=== PATIENT | female | born 1975 | race African-American/Black ===

== ENCOUNTER 2016-03-20 17:24 | Emergency (ER) | payer OTHER ==
[2016-03-20 19:49] LABS: PH,URINE 6.5 (5.0-8.0); URINE BILIRUBIN NEGATIVE (NEGATIVE); URINE BLOOD NEGATIVE (NEGATIVE); URINE GLUCOSE (UA) NEGATIVE (NEGATIVE); URINE LEUKOCYTE ESTERASE NEGATIVE (NEGATIVE); URINE NITRITE NEGATIVE (NEGATIVE); URINE PROTEIN NEGATIVE (NEGATIVE); URINE UROBILINOGEN NORMAL (0-1 mg/dl)
[2016-03-20 19:51] LABS: HCG,QUALITATIVE URINE POSITIVE
[2016-03-20 19:53] LABS: URINE APPEARANCE CLEAR; URINE COLOR YELLOW
[2016-03-20 20:07] LABS: ABSOLUTE NEUTROPHIL COUNT 3.6 K/mm3 (1.8-7.7); BASO % 0.1 % (0.2-1.0); EOS # 0.1 (0.0-0.5); EOS % 1.2 % (0.9-2.9); HEMATOCRIT 38.1 % (37.0-47.0); IMM NEUT% 0.1 % (0-1); LYMPH # 2.8 (1.0-4.8); LYMPH % 40.6 % (15-45); MEAN CELL VOLUME 79.5 fl (81.0-99.0); MEAN CORPUSCULAR HEMOGLOBIN 25.1 pg (27.0-31.0); MEAN CORPUSCULAR HGB CONC 31.5 g/dl (33.0-37.0); MEAN PLATELET VOLUME 10.4 fl (7.4-10.4); MONO # 0.4 (0.0-0.8); MONO % 5.3 % (4-12); NEUT % 52.7 % (43-75); PLATELET COUNT 230 K/mm3 (130-400); RED CELL DISTRIBUTION WIDTH 19.8 % (11.5-14.5)
[2016-03-20 20:20] LABS: ALB/GLOB RATIO 1.2 (>1.0); ALBUMIN 4.6 gm/dL (3.5-5.7); CALCIUM 9.9 mg/dL (8.6-10.3)
--- NOTE | 2016-03-21 07:35 | US ---
ABDOMINAL-LIMITED: 03/20/2016 8:16 PM CLINICAL HISTORY: Right upper quadrant pain. Unknown surgical history.. STUDY: Limited right upper quadrant ultrasound COMPARISON: none FINDINGS: Gallbladder: Wall thickness: Normal Cholelithiasis: none Pericholecystic Fluid: none Sonographic Reeves's Sign: negative Bile ducts: Common bile duct measures upwards 4 mm, normal for patient of this age. Limited visualized Liver and RUQ structures: normal IMPRESSION: No findings of cholelithiasis or acute cholecystitis. Close clinical and radiographic follow-up are recommended. Preliminary report was provided by [facility] at approximately 2133 hours on 03/20/2016.
--- NOTE | 2016-03-21 07:40 | US ---
Clinical History: Right upper quadrant pain. Patient recently found out she was . Comparison: Limited right upper quadrant ultrasound earlier on the same day. Findings: Multiple grayscale, color-flow and duplex Doppler images during transvaginal pelvic ultrasound are obtained. An early intrauterine is identified. Mean sac diameter is 1.5 for cm, for gestational age of 5 weeks and 6 days. Laird-rump length is not identified at this time. There is a possible yolk sac identified.. Mean gestational age is 5 weeks and 6 days. Estimated date of delivery is 11/14/2016. heart tones are not identified at this time. A normal amount of amniotic fluid is present. It is too early to comment upon placental location or evidence of previa. There is a small area of hemorrhage measuring 0.6 x 0.9 x 1.2 cm superior to the gestational sac. Right ovary is not visualized transvaginally. Transabdominal imaging is not performed per ordering clinician. Left ovary measures 4.5 x 2.9 x 4.2 cm with blood flow. Left-sided cyst measuring 3.4 x 2.3 x 2.9 cm is present. Small amount of fluid is noted in the cul-de-sac. Pelvic survey reveals no gross abnormalities. Impression: Gestational sac with possible yolk sac is identified. No pole or heartbeat is present at this time. Findings could relate to early gestational age. Nonvisualization of the right ovary. Right ovarian lesion cannot be excluded on the basis of this exam. Close clinical and radiographic follow-up are recommended with serial beta hCG and ultrasound. Other findings as above. Preliminary report was provided by [facility] at approximately 2137 hours on 03/21/2016.
[2016-03-22 15:18] LABS: CHLAMYDIA BD Negative (Negative); N.GONORRHOEAE BD Negative (Negative); SOURCE Urine (())
== END 2016-03-20 22:08 | disposition home or self-care (01) ==
LOC: ED 17:24
DX: O34.81 Maternal care for other abnormalities of pelvic organs, first trimester (principal); N83.202 Unspecified ovarian cyst, left side; Z3A.01 Less than 8 weeks gestation of pregnancy